=== PATIENT | female | born 2000 | race American Indian/Alaskan Native ===

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

== ENCOUNTER 2021-06-16 15:55 | Inpatient (IN) | payer MEDICAID ==
[2021-06-16] MEDS ORDERED: LACTATED RINGERS 1,000 ML IV ONE (16:13)
[2021-06-16] MEDS ORDERED: CALCIUM GLUCONATE 1000 MG/10 ML INJ IV PRN (16:35)
[2021-06-16] MEDS ORDERED: MAGNESIUM SULFATE 4 GM/100 ML BAG IV ONE (16:35)
[2021-06-16] MEDS ORDERED: DOCUSATE SODIUM 100 MG CAP PO PRN (16:35)
[2021-06-16] MEDS ORDERED: hydrALAZINE 20 MG/1 ML INJ IV PRN (16:38)
[2021-06-16] MEDS ORDERED: ONDANSETRON 4 MG/2 ML INJ IV PRN (16:38)
[2021-06-16 16:46] LABS: Bacteria,Urine 1+ /HPF (Negative); Bilirubin,Urine NEG (Negative); Blood,Urine NEG (Negative); Color,Urine Straw (Yellow); Protein,Urine <15 mg/dL mg/dL (Negative); Urobilinogen,Urine < 2.0 mg/dL (<2.0)
--- NOTE | 2021-06-16 16:56 | History and Physical Report ---
History of Present Illness Date of admission: 06/16/21 Chief complaint: Sent from [facility] for evaluation for superimposed preeclampsia History of present illness: Pt is a 21 year old female primigravida SAL 07/20/21 at 35w1d who presents at the request of Dr Xiong from [facility] for evaluation for superimposed preeclampsia due to elevation in blood pressure, RUQ pain and blurred vision though she reports that she needs glasses that does not use them. She has had care at [facility] with comanagement by [facility] since 13 wks secondary to chronic hypertension prescribed labetalol 200 mg BID, and GBS positive status. The patient has been asked to collect 24 hour urines multiple times but she has not completed one to date. Per the triage nurse, the patient did not take her labetalol dose this morning. Pt had a biophysical profile today with BPP 8/8. Past History Past Medical History: hypertension Past Surgical History: no surgical history Family/Genetic History: diabetes, hypertension Social history: no significant social history - Obstetrical History Expected Date of Delivery: 07/20/21 Actual Gestation: 35 Week(s) 1 Day(s) : 1 Medications and Allergies Allergies Allergy/AdvReac Type Severity Reaction Status Date / Time No Known Allergies Allergy Verified 06/16/21 16:12 Home Medications Medication Instructions Recorded Confirmed Last Taken Type Clindamycin 2% [Clindamycin 2% VAG 1 applicatio VG QHS 7 Days #1 cream 03/14/18 Unknown Rx CREAM] Fluconazole [Diflucan] 150 mg PO Q3D #2 tablet 03/14/18 Unknown Rx Triamcinolone Acetonide 15 gm TP TID 14 Days #1 tube 03/14/18 Unknown Rx Hyoscyamine Subl [Levsin Sl 0.125 0.125 mg SL Q6HR PRN #10 tab 12/14/18 Unknown Rx TAB] Ondansetron [Zofran Odt] 4 mg PO Q8HR PRN #10 tab.rapdis 12/14/18 Unknown Rx Active Meds: Active Medications Acetaminophen (Acetaminophen 325 Mg Tab) 650 mg PO Q4H PRN PRN Reason: Pain MILD(1-3)/Fever >100.5/MARINELLI Betamethasone Acet/Betameth SodPhos (Betamet Acet/Betamet Na Ph 6 Mg/Ml Inj 5 Ml Mdv) 12 mg IM Q24HR LIDYA Stop: 06/17/21 10:01 Calcium Gluconate (Calcium Gluconate 1000 Mg/10 Ml Inj) 1,000 mg IV ONCE PRN PRN Reason: Hypermagnesmia Docusate Sodium (Docusate Sodium 100 Mg Cap) 100 mg PO Q12H PRN PRN Reason: Constipation Hydralazine HCl (Hydralazine 20 Mg/1 Ml Inj) 5 mg IV Q30MIN PRN PRN Reason: Hypertension Lactated Ringer's (Lactated Ringers) 1,000 mls @ 999 mls/hr IV BOLUS ONE Stop: 06/16/21 17:13 Lactated Ringer's (Lactated Ringers) 1,000 mls @ 125 mls/hr IV DIRECT LIDYA Magnesium Sulfate (Magnesium Sulfate 4gm/100ml) 4 gm in 100 mls @ 300 mls/hr IV ONCE ONE Stop: 06/16/21 16:54 Magnesium Sulfate (Magnesium Sulfate 40gm/1000ml) 40 gm in 1,000 mls @ 50 mls/hr IV DIRECT [facility] Multivitamins/Iron/Calcium ( Cph06-Mi Fumarate-Folic Acid Vit Tab) 1 each PO QDAY [facility] Ondansetron HCl (Ondansetron 4 Mg/2 Ml Inj) 4 mg IV Q6H PRN PRN Reason: Nausea And Vomiting Review of Systems All systems: negative Gastrointestinal: abdominal pain (RUQ pain since last night per Dr Xiong ) - Vital Signs Vital signs: Vital Signs Pulse Pulse Ox 66 100 06/16/21 16:27 06/16/21 16:27 Temp Pulse Resp BP Pulse Ox 98.8 F 57 L 18 184/97 100 06/16/21 16:29 06/16/21 16:44 06/16/21 16:29 06/16/21 16:44 06/16/21 16:42 - Physical Exam Abdomen: Positive: soft (gravid ) - Obstetrical FHR: auscultation normal Uterine Contraction Monitor Mode: External Uterine Contraction Pattern: Absent Uterine Tone Measurement Phase: Resting Results All other labs normal. Assessment and Plan A: IUP at 35w1d Chronic Hypertension prescribed labetalol 200 mg BID, pt did not take her medication today New elevation of blood pressure GBS positive P: Admit to antepartum service Magnesium sulfate for seizure prophylaxis IV hydralazine PRN Restart Labetalol 200 mg BID Initiate betamethasone series HEL labs
[2021-06-16] MEDS: BETAMET ACET/BETAMET NA PH 6 MG/ML INJ 5 ML MDV IM SCH (17:20)
[2021-06-16 17:43] LABS: Hematocrit 34.3 % (30.3-42.9); Hemoglobin 10.9 gm/dl (10.1-14.3); Mean Corpuscular HGB Conc 32 % (30-34); Mean Corpuscular Volume 86 fl (79-97); Platelet Count 220 K/mm3 (140-440); Red Blood Count 3.98 M/mm3 (3.65-5.03); Red Cell Distribution Width 17.3 % (13.2-15.2)
[2021-06-16 18:22] LABS: Alanine Aminotransferase 9 units/L (7-56); Uric Acid 5.6 mg/dL (3.5-7.6)
[2021-06-16] MEDS: LACTATED RINGERS 1,000 ML IV SCH (18:22)
[2021-06-16] MEDS: MAGNESIUM SULFATE 40GM/1000ML 40 GM/1,000 ML BAG IV SCH (18:49)
[2021-06-17] MEDS: ACETAMINOPHEN 325 MG TAB PO PRN ×2 (06:48→12:14)
[2021-06-17] MEDS: LACTATED RINGERS 1,000 ML IV SCH (06:49)
[2021-06-17] MEDS ORDERED: PRENATAL VIT27-FE FUMARATE-FOLIC ACID VIT TAB PO SCH (10:00)
[2021-06-17] MEDS: MAGNESIUM SULFATE 40GM/1000ML 40 GM/1,000 ML BAG IV SCH (15:09)
--- NOTE | 2021-06-17 15:34 | Progress Note ---
Assessment and Plan IUP at 35 weeks with gestational hypertension. Patient blood pressures have been in normal range since she has continued to be compliant while in house. Importance of compliance stressed to the patient. Patient is to receive the second dose of steroids on this evening. I advised patient that once second dose of steroids is received she could be discharged to home. She understands the necessity of taking her medication on a daily basis. She is advised to follow-up with Dr. Rowland in the office on this coming week. Subjective - Subjective Date of service: 06/17/21 Principal diagnosis: Gestational hypertension Interval history: Patient 21-year-old G2, P1 who presented yesterday with elevated blood pressure from the office. Patient reports that she did not take her medicine on yesterday morning. Since she has been in a house, her blood pressures have been well controlled. Objective - Vital Signs Vital Signs: Vital Signs - 12hr 06/17/21 06/17/21 06/17/21 03:35 03:40 03:41 Temperature 98.7 F Pulse Rate 96 H 94 H 97 H Respiratory 18 Rate Blood Pressure 114/75 O2 Sat by Pulse 100 99 Oximetry O2 Sat by Pulse Oximetry [ Throughout] 06/17/21 06/17/21 06/17/21 03:45 03:50 03:55 Temperature Pulse Rate 102 H 101 H 98 H Respiratory Rate Blood Pressure O2 Sat by Pulse 100 100 100 Oximetry O2 Sat by Pulse Oximetry [ Throughout] 06/17/21 06/17/21 06/17/21 04:00 04:05 04:10 Temperature Pulse Rate 94 H 103 H 89 Respiratory Rate Blood Pressure O2 Sat by Pulse 100 99 99 Oximetry O2 Sat by Pulse Oximetry [ Throughout] 06/17/21 06/17/21 06/17/21 04:15 04:20 04:25 Temperature Pulse Rate 96 H 90 93 H Respiratory Rate Blood Pressure O2 Sat by Pulse 99 99 98 Oximetry O2 Sat by Pulse Oximetry [ Throughout] 06/17/21 06/17/21 06/17/21 04:30 04:35 04:40 Temperature 98.1 F Pulse Rate 97 H 96 H 80 Respiratory 18 Rate Blood Pressure O2 Sat by Pulse 100 100 100 Oximetry O2 Sat by Pulse Oximetry [ Throughout] 06/17/21 06/17/21 06/17/21 04:41 04:45 04:50 Temperature Pulse Rate 86 84 95 H Respiratory Rate Blood Pressure 121/73 O2 Sat by Pulse 99 99 Oximetry O2 Sat by Pulse Oximetry [ Throughout] 06/17/21 06/17/21 06/17/21 04:55 05:00 05:05 Temperature Pulse Rate 90 94 H 84 Respiratory Rate Blood Pressure O2 Sat by Pulse 100 100 99 Oximetry O2 Sat by Pulse Oximetry [ Throughout] 06/17/21 06/17/21 06/17/21 05:10 05:15 05:20 Temperature Pulse Rate 86 86 84 Respiratory Rate Blood Pressure O2 Sat by Pulse 99 99 99 Oximetry O2 Sat by Pulse Oximetry [ Throughout] 06/17/21 06/17/21 06/17/21 05:25 05:30 05:35 Temperature Pulse Rate 85 83 87 Respiratory Rate Blood Pressure O2 Sat by Pulse 99 98 98 Oximetry O2 Sat by Pulse Oximetry [ Throughout] 06/17/21 06/17/21 06/17/21 05:40 05:41 05:45 Temperature 98.9 F Pulse Rate 86 85 87 Respiratory 18 Rate Blood Pressure 106/68 O2 Sat by Pulse 99 97 Oximetry O2 Sat by Pulse Oximetry [ Throughout] 06/17/21 06/17/21 06/17/21 05:50 05:55 06:00 Temperature Pulse Rate 91 H 80 79 Respiratory Rate Blood Pressure O2 Sat by Pulse 97 98 98 Oximetry O2 Sat by Pulse Oximetry [ Throughout] 06/17/21 06/17/21 06/17/21 06:05 06:10 06:15 Temperature Pulse Rate 84 83 86 Respiratory Rate Blood Pressure O2 Sat by Pulse 97 97 98 Oximetry O2 Sat by Pulse Oximetry [ Throughout] 06/17/21 06/17/21 06/17/21 06:20 06:25 06:30 Temperature Pulse Rate 87 91 H 75 Respiratory Rate Blood Pressure O2 Sat by Pulse 97 99 99 Oximetry O2 Sat by Pulse Oximetry [ Throughout] 06/17/21 06/17/21 06/17/21 06:35 06:40 06:42 Temperature 98.2 F Pulse Rate 79 111 H 90 Respiratory 20 Rate Blood Pressure 117/69 O2 Sat by Pulse 98 99 Oximetry O2 Sat by Pulse Oximetry [ Throughout] 06/17/21 06/17/21 06/17/21 06:45 06:48 06:50 Temperature Pulse Rate 87 92 H Respiratory 18 Rate Blood Pressure O2 Sat by Pulse 99 100 Oximetry O2 Sat by Pulse Oximetry [ Throughout] 06/17/21 06/17/21 06/17/21 06:55 07:00 07:05 Temperature Pulse Rate 92 H 108 H 93 H Respiratory Rate Blood Pressure O2 Sat by Pulse 99 100 99 Oximetry O2 Sat by Pulse Oximetry [ Throughout] 06/17/21 06/17/21 06/17/21 07:10 07:15 07:20 Temperature Pulse Rate 89 92 H 88 Respiratory Rate Blood Pressure O2 Sat by Pulse 99 99 99 Oximetry O2 Sat by Pulse Oximetry [ Throughout] 06/17/21 06/17/21 06/17/21 07:25 07:30 07:35 Temperature Pulse Rate 86 95 H 90 Respiratory Rate Blood Pressure O2 Sat by Pulse 100 99 99 Oximetry O2 Sat by Pulse Oximetry [ Throughout] 06/17/21 06/17/21 06/17/21 07:40 07:42 07:45 Temperature Pulse Rate 101 H 92 H 87 Respiratory Rate Blood Pressure 132/81 O2 Sat by Pulse 100 100 Oximetry O2 Sat by Pulse Oximetry [ Throughout] 06/17/21 06/17/21 06/17/21 07:50 07:55 08:00 Temperature Pulse Rate 95 H 85 94 H Respiratory Rate Blood Pressure O2 Sat by Pulse 100 100 100 Oximetry O2 Sat by Pulse Oximetry [ Throughout] 06/17/21 06/17/21 06/17/21 08:05 08:10 08:15 Temperature Pulse Rate 98 H 86 81 Respiratory Rate Blood Pressure O2 Sat by Pulse 100 99 99 Oximetry O2 Sat by Pulse Oximetry [ Throughout] 06/17/21 06/17/21 06/17/21 08:20 08:22 08:25 Temperature Pulse Rate 97 H 83 Respiratory Rate Blood Pressure O2 Sat by Pulse 100 99 Oximetry O2 Sat by Pulse 99 Oximetry [ Throughout] 06/17/21 06/17/21 06/17/21 08:30 08:35 08:40 Temperature Pulse Rate 83 102 H 89 Respiratory Rate Blood Pressure O2 Sat by Pulse 99 99 100 Oximetry O2 Sat by Pulse Oximetry [ Throughout] 06/17/21 06/17/21 06/17/21 08:41 08:45 08:50 Temperature Pulse Rate 86 92 H 91 H Respiratory Rate Blood Pressure 123/75 O2 Sat by Pulse 99 99 Oximetry O2 Sat by Pulse Oximetry [ Throughout] 01/06/17/21 06/17/21 08:55 09:00 09:05 Temperature Pulse Rate 93 H 111 H 100 H Respiratory Rate Blood Pressure O2 Sat by Pulse 99 99 99 Oximetry O2 Sat by Pulse Oximetry [ Throughout] 06/17/21 06/17/21 06/17/21 09:10 09:15 09:20 Temperature Pulse Rate 98 H 93 H 90 Respiratory Rate Blood Pressure O2 Sat by Pulse 99 100 100 Oximetry O2 Sat by Pulse Oximetry [ Throughout] 06/17/21 06/17/21 06/17/21 09:25 09:30 09:35 Temperature Pulse Rate 114 H 98 H 95 H Respiratory Rate Blood Pressure O2 Sat by Pulse 100 100 100 Oximetry O2 Sat by Pulse Oximetry [ Throughout] 06/17/21 06/17/21 06/17/21 09:40 09:42 09:45 Temperature Pulse Rate 114 H 86 111 H Respiratory Rate Blood Pressure 125/79 O2 Sat by Pulse 99 99 Oximetry O2 Sat by Pulse Oximetry [ Throughout] 06/17/21 06/17/21 06/17/21 09:50 09:55 10:00 Temperature Pulse Rate 88 91 H 89 Respiratory Rate Blood Pressure O2 Sat by Pulse 99 99 100 Oximetry O2 Sat by Pulse Oximetry [ Throughout] 06/17/21 06/17/21 06/17/21 10:05 10:10 10:15 Temperature Pulse Rate 105 H 104 H 96 H Respiratory Rate Blood Pressure O2 Sat by Pulse 100 99 99 Oximetry O2 Sat by Pulse Oximetry [ Throughout] 06/17/21 06/17/21 06/17/21 10:20 10:25 10:30 Temperature Pulse Rate 99 H 92 H 104 H Respiratory Rate Blood Pressure O2 Sat by Pulse 99 100 100 Oximetry O2 Sat by Pulse Oximetry [ Throughout] 06/17/21 06/17/21 06/17/21 10:35 10:40 10:41 Temperature Pulse Rate 96 H 103 H 96 H Respiratory Rate Blood Pressure 135/85 O2 Sat by Pulse 99 98 Oximetry O2 Sat by Pulse Oximetry [ Throughout] 06/17/21 06/17/21 06/17/21 10:45 10:50 10:55 Temperature Pulse Rate 105 H 98 H 97 H Respiratory Rate Blood Pressure O2 Sat by Pulse 99 100 100 Oximetry O2 Sat by Pulse Oximetry [ Throughout] 06/17/21 06/17/21 06/17/21 11:00 11:05 11:10 Temperature Pulse Rate 104 H 105 H 102 H Respiratory Rate Blood Pressure O2 Sat by Pulse 99 99 100 Oximetry O2 Sat by Pulse Oximetry [ Throughout] 06/17/21 06/17/21 06/17/21 11:15 11:20 11:25 Temperature Pulse Rate 107 H 109 H 103 H Respiratory Rate Blood Pressure O2 Sat by Pulse 99 99 100 Oximetry O2 Sat by Pulse Oximetry [ Throughout] 06/17/21 06/17/21 06/17/21 11:30 11:35 11:40 Temperature Pulse Rate 98 H 96 H 86 Respiratory Rate Blood Pressure O2 Sat by Pulse 99 99 99 Oximetry O2 Sat by Pulse Oximetry [ Throughout] 06/17/21 06/17/21 06/17/21 11:41 11:45 11:50 Temperature Pulse Rate 86 88 93 H Respiratory Rate Blood Pressure 120/75 O2 Sat by Pulse 99 98 Oximetry O2 Sat by Pulse Oximetry [ Throughout] 06/17/21 06/17/21 06/17/21 11:55 12:00 12:05 Temperature Pulse Rate 90 97 H 99 H Respiratory Rate Blood Pressure O2 Sat by Pulse 98 98 98 Oximetry O2 Sat by Pulse Oximetry [ Throughout] 06/17/21 06/17/21 06/17/21 12:10 12:15 12:20 Temperature Pulse Rate 92 H 104 H 98 H Respiratory Rate Blood Pressure O2 Sat by Pulse 99 99 100 Oximetry O2 Sat by Pulse Oximetry [ Throughout] 06/17/21 06/17/21 06/17/21 12:25 12:30 12:35 Temperature Pulse Rate 98 H 96 H 98 H Respiratory Rate Blood Pressure O2 Sat by Pulse 100 100 100 Oximetry O2 Sat by Pulse Oximetry [ Throughout] 06/17/21 06/17/21 06/17/21 12:40 12:41 12:45 Temperature Pulse Rate 90 93 H 105 H Respiratory Rate Blood Pressure 114/68 O2 Sat by Pulse 100 99 Oximetry O2 Sat by Pulse Oximetry [ Throughout] 06/17/21 06/17/21 06/17/21 12:50 12:55 13:00 Temperature Pulse Rate 89 93 H 96 H Respiratory Rate Blood Pressure O2 Sat by Pulse 99 98 98 Oximetry O2 Sat by Pulse Oximetry [ Throughout] 06/17/21 06/17/21 06/17/21 13:05 13:10 13:15 Temperature Pulse Rate 108 H 92 H 107 H Respiratory Rate Blood Pressure O2 Sat by Pulse 99 98 98 Oximetry O2 Sat by Pulse Oximetry [ Throughout] 06/17/21 06/17/21 06/17/21 13:20 13:25 13:30 Temperature Pulse Rate 92 H 92 H 95 H Respiratory Rate Blood Pressure O2 Sat by Pulse 98 98 98 Oximetry O2 Sat by Pulse Oximetry [ Throughout] 06/17/21 06/17/21 06/17/21 13:35 13:40 13:41 Temperature Pulse Rate 93 H 95 H 98 H Respiratory Rate Blood Pressure 108/65 O2 Sat by Pulse 98 98 Oximetry O2 Sat by Pulse Oximetry [ Throughout] 06/17/21 06/17/21 06/17/21 13:45 13:50 13:55 Temperature Pulse Rate 98 H 98 H 97 H Respiratory Rate Blood Pressure O2 Sat by Pulse 98 98 98 Oximetry O2 Sat by Pulse Oximetry [ Throughout] 06/17/21 06/17/21 06/17/21 14:00 14:05 14:10 Temperature Pulse Rate 111 H 107 H 105 H Respiratory Rate Blood Pressure O2 Sat by Pulse 99 100 99 Oximetry O2 Sat by Pulse Oximetry [ Throughout] 06/17/21 06/17/21 06/17/21 14:15 14:20 14:25 Temperature Pulse Rate 101 H 109 H 98 H Respiratory Rate Blood Pressure O2 Sat by Pulse 100 98 98 Oximetry O2 Sat by Pulse Oximetry [ Throughout] 06/17/21 06/17/21 06/17/21 14:30 14:35 14:40 Temperature Pulse Rate 102 H 93 H 100 H Respiratory Rate Blood Pressure O2 Sat by Pulse 98 98 99 Oximetry O2 Sat by Pulse Oximetry [ Throughout] 06/17/21 06/17/21 06/17/21 14:41 14:45 14:50 Temperature Pulse Rate 91 H 99 H 94 H Respiratory Rate Blood Pressure 111/66 O2 Sat by Pulse 98 98 Oximetry O2 Sat by Pulse Oximetry [ Throughout] 06/17/21 06/17/21 06/17/21 14:55 15:00 15:05 Temperature Pulse Rate 91 H 95 H 104 H Respiratory Rate Blood Pressure O2 Sat by Pulse 99 98 98 Oximetry O2 Sat by Pulse Oximetry [ Throughout] 06/17/21 06/17/21 06/17/21 15:10 15:15 15:20 Temperature Pulse Rate 95 H 100 H 97 H Respiratory Rate Blood Pressure O2 Sat by Pulse 99 99 98 Oximetry O2 Sat by Pulse Oximetry [ Throughout] 06/17/21 06/17/21 15:25 15:30 Temperature Pulse Rate 104 H 104 H Respiratory Rate Blood Pressure O2 Sat by Pulse 98 99 Oximetry O2 Sat by Pulse Oximetry [ Throughout] - Exam Breasts: deferred Cardiovascular: Regular rate, Normal S1, Normal S2 Lungs: Clear to auscultation, Normal air movement Abdomen: Present: normal appearance, soft. Absent: distention, tenderness Vulva: both: normal Uterus: Present: normal FHR: auscultation normal - Labs Labs: Abnormal Labs 06/16/21 06/16/21 Unknown Unknown MCH 27 L RDW 17.3 H Creatinine 0.5 L Lactate Dehydrogenase 232 H Laboratory Results - last 24 hr 06/16/21 06/16/21 06/16/21 Unknown Unknown Unknown WBC 9.6 RBC 3.98 Hgb 10.9 Hct 34.3 MCV 86 MCH 27 L MCHC 32 RDW 17.3 H Plt Count 220 Creatinine 0.5 L Estimated GFR > 60 Uric Acid 5.6 AST 16 ALT 9 Lactate Dehydrogenase 232 H Urine Color Straw Urine Turbidity Clear Urine pH 7.0 Ur Specific [place] 1.003 Urine Protein <15 mg/dl Urine Glucose (UA) Neg Urine Ketones Neg Urine Blood Neg Urine Nitrite Neg Urine Bilirubin Neg Urine Urobilinogen < 2.0 Ur Leukocyte Esterase Neg Urine WBC (Auto) 1.0 Urine RBC (Auto) 2.0 U Epithel Cells (Auto) 1.0 Urine Bacteria (Auto) 1+ Urine Yeast (Budding) Few Syphilis IgG Antibody SARS-CoV-2 (PCR) Blood Type Antibody Screen 06/16/21 06/16/21 06/17/21 Unknown Unknown 10:15 WBC RBC Hgb Hct MCV MCH MCHC RDW Plt Count Creatinine Estimated GFR Uric Acid AST ALT Lactate Dehydrogenase Urine Color Urine Turbidity Urine pH Ur Specific [place] Urine Protein Urine Glucose (UA) Urine Ketones Urine Blood Urine Nitrite Urine Bilirubin Urine Urobilinogen Ur Leukocyte Esterase Urine WBC (Auto) Urine RBC (Auto) U Epithel Cells (Auto) Urine Bacteria (Auto) Urine Yeast (Budding) Syphilis IgG Antibody Nonreactive SARS-CoV-2 (PCR) Negative Blood Type O POSITIVE Antibody Screen Negative
--- NOTE | 2021-06-17 15:38 | Discharge Summary ---
Providers - Providers Date of Admission: 06/16/21 16:36 Date of discharge: 06/17/21 Attending physician: MANE POSEY Primary care physician: MOON ALARCON MD Hospitalization Reason for admission: other (Gestational hypertension) Discharge diagnosis: other (Gestational hypertension) Condition at discharge: Stable Disposition: 01 HOME / SELF CARE / HOMELESS Plan - Provider Discharge Summary Activity: routine, no sex for 6 weeks, no heavy lifting 4 weeks Diet: routine Instructions: routine Additional instructions: [] Smoking cessation referral if applicable(refer to patient education folder for contact #) [] Refer to [facility]'s [facility] Booklet Call your doctor immediately for: * Fever > 100.5 * Heavy vaginal bleeding ( >1 pad per hour) * Severe persistent headache * Shortness of breath * Reddened, hot, painful area to leg or breast * Drainage or odor from incision. * Keep incision clean and dry at all times and follow doctor's instructions regarding bathing/showering Remember to take all medications as prescribed. - Follow up plan Follow up: MOON PRESTON MD [Primary Care Provider] - 7 Days
[2021-06-17] MEDS ORDERED: BETAMET ACET/BETAMET NA PH 6 MG/ML INJ 5 ML MDV IM ONE (17:27)
[2021-06-17] MEDS: BETAMET ACET/BETAMET NA PH 6 MG/ML INJ 5 ML MDV IM SCH (17:29)
[2021-06-18] MEDS ORDERED: ePHEDrine SULFATE 50 MG/1 ML INJ ONE (07:22)
[2021-06-18 08:08] VITALS: BP 136/78
== END 2021-06-18 10:15 | disposition home or self-care (01) | DRG 781 ==
LOC: TRG 15:55 → APU 15:57 → LD 17:56 → TRG 18:30 → LD 18:38
PROVIDERS: ADMIT Obstetrics & Gynecology; ATTEND Obstetrics & Gynecology
DX: O13.3 Gestational [pregnancy-induced] hypertension without significant proteinuria, third trimester (principal); O99.820 Streptococcus B carrier state complicating pregnancy; Z3A.35 35 weeks gestation of pregnancy; Z20.822 Contact with and (suspected) exposure to COVID-19; Z83.3 Family history of diabetes mellitus; Z82.49 Family history of ischemic heart disease and other diseases of the circulatory system
CPT/HCPCS: 36415; 81001; 82565; 83615; 83735; 84156; 84450; 84460; 84550; 85027; 86592; 86850; 86900; 86901; G0378; J0360; J0702; J3475; J7120; U0003

== ENCOUNTER 2021-11-10 01:30 | Emergency (ER) | payer MEDICAID ==
[2021-11-10 02:22] VITALS: BP 127/94
[2021-11-10] MEDS ORDERED: cephALEXin 500 MG CAP PO ONE (03:23)
[2021-11-10] MEDS ORDERED: TETANUS,DIPH,PERTUSS(ACELL) VACCINE 0.5 ML SYRINGE IM ONE (03:23)
[2021-11-10] MEDS ORDERED: HYDROcodone/ACETAMINOPHEN 5-325 MG TAB PO ONE (03:27)
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
[2021-11-10] MEDS ORDERED: LIDOCAINE (1%) 10 MG/1 ML VIAL 20 ML MDV INFILTRATI ONE (05:01)
== END 2021-11-10 08:02 | disposition home or self-care (01) ==
LOC: ED 01:30
DX: O26.891 Other specified pregnancy related conditions, first trimester (principal); S51.811A Laceration without foreign body of right forearm, initial encounter; S61.512A Laceration without foreign body of left wrist, initial encounter; S61.011A Laceration without foreign body of right thumb without damage to nail, initial encounter; X58.XXXA Exposure to other specified factors, initial encounter; Y93.89 Activity, other specified; Y92.89 Other specified places as the place of occurrence of the external cause; Y99.8 Other external cause status
CPT/HCPCS: 90471; 90715; 99283

== ENCOUNTER 2021-12-04 17:58 | Emergency (ER) | payer MEDICAID ==
--- NOTE | 2021-12-04 19:29 | Emergency Department Report ---
Suture/Staple Removal - HPI Chief Complaint: Laceration/Recheck/Suture Stated Complaint: NEED STICHES REMOVED Time Seen by Provider: 12/04/21 19:29 When Sutures or [place] Placed: >14 Days Ago Wound Location: r thumb, r and left wrist ED Review of Systems ROS: Stated complaint: NEED STICHES REMOVED Other details as noted in HPI Comment: All other systems reviewed and negative ED Past Medical Hx - Past Medical History Previous Medical History?: Yes Hx Hypertension: No Hx Congestive Heart Failure: No Hx Diabetes: No Hx Deep Vein Thrombosis: Yes (2012 Pulmonary embolism) Hx Renal Disease: No Hx Sickle Cell Disease: No Hx Seizures: No Hx Asthma: No Hx COPD: No - Surgical History Past Surgical History?: No - Family History Family history: no significant - Social History Smoking Status: Unknown if ever smoked Substance Use Type: None - Medications Home Medications: Home Medications Medication Instructions Recorded Confirmed Last Taken Type Clindamycin 2% [Clindamycin 2% VAG 1 applicatio VG QHS 7 Days #1 cream 03/14/18 Unknown Rx CREAM] Fluconazole [Diflucan] 150 mg PO Q3D #2 tablet 03/14/18 Unknown Rx Triamcinolone Acetonide 15 gm TP TID 14 Days #1 tube 03/14/18 Unknown Rx Hyoscyamine Subl [Levsin Sl 0.125 0.125 mg SL Q6HR PRN #10 tab 12/14/18 Unknown Rx TAB] Ondansetron [Zofran Odt] 4 mg PO Q8HR PRN #10 tab.rapdis 12/14/18 Unknown Rx Acetaminophen [Tylenol] 6,650 mg PO Q6H PRN #60 cap 11/10/21 Unknown Rx cephALEXin [Keflex] 500 mg PO Q12HR 7 Days #21 cap 11/10/21 Unknown Rx Suture Removal Exam - Exam General: Vital signs noted. No distress. Alert and acting appropriately. Wound: Yes Pathologic Erythema, Yes Tenderness, No Drainage, No Pus, No Wound Dehiscence Other Systems: All other systems reviewed and are unremarkable. ED Course Vital Signs 12/04/21 18:35 Pulse Rate 68 Respiratory 18 Rate Blood Pressure 120/78 [Right] O2 Sat by Pulse 100 Oximetry ED Recheck MDM - Differential Diagnosis Wound Recheck, Suture/Staple Removal - Medical Decision Making sutures removed from 3 sites tolerated well wound care provided Vital Signs 12/04/21 18:35 Pulse Rate 68 Respiratory 18 Rate Blood Pressure 120/78 [Right] O2 Sat by Pulse 100 Oximetry dc home with dc plan of care including wound care and follow up. she verbalizes understanding of plan of care. Critical care attestation.: If time is entered above; I have spent that time in minutes in the direct care of this critically ill patient, excluding procedure time. ED Disposition Clinical Impression: Visit for suture removal Disposition: HOME / SELF CARE / HOMELESS Is pt being admited?: No Does the pt Need Aspirin: No Condition: Stable Instructions: Wound Closure Removal, Care After Additional Instructions: keep wounds clean and dry Referrals: AGNIESZKA CHANG MD [Staff Physician] - 3-5 Days Time of Disposition: 19:45
[2021-12-04 20:52] VITALS: BP 100/66
== END 2021-12-04 20:52 | disposition home or self-care (01) ==
LOC: ED 17:58
DX: S61.512D Laceration without foreign body of left wrist, subsequent encounter (principal); Z48.02 Encounter for removal of sutures; Z86.718 Personal history of other venous thrombosis and embolism; X58.XXXD Exposure to other specified factors, subsequent encounter
CPT/HCPCS: 99282